=== PATIENT | male | born 2000 | race African-American/Black ===

== ENCOUNTER 2019-11-04 23:08 | Emergency (ER) | payer OTHER ==
[~2019-11-04] VITALS: Ht 177.8 cm; Wt 76.2 kg
[2019-11-04] MEDS ORDERED: PROAIR HFA8.5 GM INH (23:24)
[2019-11-05] MEDS ORDERED: NAPROSYN500 MG PO (00:24)
[2019-11-05] MEDS ORDERED: NORFLEX100 MG PO (00:24)
[2019-11-05 00:54] VITALS: BP 110/68
--- NOTE | 2019-11-05 08:21 | EKG ---
[facility] [place] [address] ELECTROCARDIOGRAM REPORT Name: BOBO ROSALES Room #: DEP [facility].#: [id number] Admission: 11/04/19 Attend Phys: Discharge: 11/05/19 Date of : 89 Report #: [id number] THIS REPORT FOR: cc: NO FAMILY PHYSICIAN or PCP NO FAMILY PHYSICIAN or PCP Timo Rivas MD [facility] ~ THIS REPORT FOR: //name// [facility] ED Test Date: 2019-11-04 Test Time: 23:18:14 Pat Name: BOBO ROSALES Department: Room: Gender: [employer]ist: : 2000 Requested By: Jeffrey Temple Order Number: [id number] MD: Timo Rivas Measurements Intervals [place] Rate: 92 P: 81 [place]: 130 QRS: -11 QRSD: 95 T: 35 QT: 344 QTc: 426 Interpretive Statements Sinus rhythm Normal tracing No previous ECG available for comparison Electronically Signed On 11-05-2019 8:20:42 CDT by Timo Rivas [email or web address] <ELECTRONICALLY SIGNED> By: Timo Rivas MD, [facility] 11/05/19819 17 Timo Rivas MD, [facility] /EPI
== END 2019-11-05 00:54 | disposition home or self-care (01) ==
LOC: ER 23:08
DX: M94.0 Chondrocostal junction syndrome [Tietze] (principal); M43.6 Torticollis; Z79.899 Other long term (current) drug therapy